=== PATIENT | male | born 2000 | race Hispanic/Latino ===

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

== ENCOUNTER 2021-03-08 15:32 | Emergency (ER) | payer MEDICAID, OTHER ==
[2021-03-09 15:08] LABS: SARS-CoV-2 PCR by NAA Not Detected (NotDetected)
== END 2021-03-08 17:12 | disposition home or self-care (01) ==
LOC: NAV ERS 15:32
DX: J06.9 Acute upper respiratory infection, unspecified (principal); Z20.822 Contact with and (suspected) exposure to COVID-19
CPT/HCPCS: 99284; U0003; U0005

== ENCOUNTER 2022-10-11 20:30 | Emergency (ER) | payer OTHER, SELFPAY ==
[2022-10-11] MEDS ORDERED: Ibuprofen 200 MG TAB ONE (21:31)
== END 2022-10-11 21:37 | disposition home or self-care (01) ==
LOC: NAV ERS 20:30
DX: S39.011A Strain of muscle, fascia and tendon of abdomen, initial encounter (principal); F17.210 Nicotine dependence, cigarettes, uncomplicated; X50.1XXA Overexertion from prolonged static or awkward postures, initial encounter; Y93.B9 Activity, other involving muscle strengthening exercises
CPT/HCPCS: 99283

== ENCOUNTER 2023-02-11 12:28 | Emergency (ER) | payer SELFPAY ==
[2023-02-11] MEDS ORDERED: Ondansetron ODT 4 MG TAB ONE (13:06)
[2023-02-11] MEDS ORDERED: Ibuprofen 200 MG TAB ONE (13:24)
[2023-02-11] MEDS ORDERED: cefTRIAXone (ROCEPHIN) 1 GM VIAL ONE (13:42)
[2023-02-11] MEDS ORDERED: Water For Inject, Bacteriostat 30 ML ONE (13:42)
== END 2023-02-11 14:08 | disposition home or self-care (01) ==
LOC: NAV ERS 12:28
DX: J02.0 Streptococcal pharyngitis (principal); J20.9 Acute bronchitis, unspecified; R11.2 Nausea with vomiting, unspecified
CPT/HCPCS: 87430; 87804; 96372; 99283; J0696; Q0162